=== PATIENT | male | born 1950 | race Caucasian/White ===

== ENCOUNTER → 2016-11-26 | Day surgery (SDC) | payer BC ==
[~2016-11-26] MED LIST: ALLE12TA PO; ASPI81 PO; ENDO5TAB6 PO; FENT25DI TD; FISH1000 PO; HYDR12.56 PO; KETOROLAC TROMETHAMINE 30 MG/ML (IVP) VIAL IV PUSH ONE; LACTATED RINGER'S 1000 ML INJ 1,000 ML ONE; LOSA25TA31 PO; MIDAZOLAM HCL 2 MG/2 ML VIAL ONE; NICO250C PO; OMEP20CA5 PO; ONDANSETRON HCL 4 MG/2 ML VIAL IV PUSH ONE; OS-CTAB3 PO; PROPOFOL 200 MG/20 ML AMP IV ONE; SOMA350T PO; TAB-TAB PO; TIOT18I; VITA500T10 PO; ZOLP1TAB32; [UNRECOGNIZED DRUG - OTHER] PO; ceFAZolin 2 GM PREMIX 50 ML ONE; metroNIDAZOLE 500 MG INJ 100 ML IV ONE
--- NOTE | 2016-11-26 17:09 | TN ---
cc: YAN HANNAH M.D., ISSAM M.D. RAMSHAW, DAVID G. M.D. DATE OF SURGERY 11/26/2016 PREOPERATIVE DIAGNOSES 1. Gallstones. 2. History of choledocholithiasis. POSTOPERATIVE DIAGNOSES 1. Gallstones. 2. History of choledocholithiasis. 3. Umbilical hernia. PROCEDURES PERFORMED Laparoscopic cholecystectomy and repair umbilical hernia. SURGEON Dr. Clovis Pierre [employer]UTIONS ADVISOR Marjorie Daigle, MS-3. ANESTHESIA General. INDICATIONS A very pleasant 66-year-old gentleman who was sent to me in consultation by Dr. Anderson after he was treated for choledocholithiasis with ERCP, stone extraction and stent placement. He has an appointment for ERCP with Dr. Hannah in the near future. INTRAOPERATIVE FINDINGS Full gallbladder with large approximate 2 cm stone. Gallbladder removed and sent to pathology. ESTIMATED BLOOD LOSS Minimal. DESCRIPTION OF PROCEDURE IN DETAIL The patient identified as Clovis Cazares, taken to the operating room and placed in supine position. Sequential compression devices were placed on bilateral lower extremities. Following induction of adequate general endotracheal anesthesia, the patient's abdomen was prepped and draped in usual sterile fashion with Betadine. A time-out procedure was performed. Following completion of the time-out procedure to everyone's satisfaction within the room, 0.5% Marcaine with epinephrine was placed at each incision site. A supraumbilical about a 2.5 cm transverse incision was carried out with a scalpel and dissection continued posteriorly. An incarcerated preperitoneal fatty tissue was identified, from surrounding tissues and the herniated tissue was from the overlying umbilicus using Metzenbaum scissors. The umbilical hernia defect was less than 1 centimeter in size. It was extended superiorly using scissor and entry in the peritoneal cavity facilitated with surgeon's finger. The applied medical balloon Cho trocar was placed in the peritoneal cavity, its balloon inflated to insufflation to a level of 15 mmHg ensued. The patient was placed in a reverse Trendelenburg position turned to the left. Two upper abdominal 5 mm trocars were placed in peritoneal cavity under direct laparoscopic view after incision of the skin with a scalpel. Gallbladder was then removed from the gallbladder fossa in a dome down technique using the harmonic scalpel. Cystic arterial branch divided with a harmonic scalpel. The cystic duct was isolated from surrounding tissues, ligated proximally and distally with 0-PDS Endoloops and it was divided between the Endoloops with a harmonic scalpel. The gallbladder was then removed from the peritoneal cavity from the umbilical fascial defect which had to be extended to allow for removal of the gallbladder with a large stone. Gallbladder was passed off the field for pathologic evaluation. The right upper quadrant was examined. There was no evidence of bloody or bilious drainage. The cystic duct ligature remained intact. The cystic arterial stump was hemostatic. A brief survey demonstrated no additional significant abnormalities discovered. The remaining local anesthetic was placed in the subhepatic position. Trocars were removed under direct visualization. There was no evidence of bleeding from trocar sites. The abdomen was desufflated through the umbilical port and was then removed. The umbilical fascial defect was then closed with multiple interrupted 0 Vicryl suturs, [id number] and simple. The umbilicus was reformed with interrupted 2-0 Vicryl suture. Skin incisions were approximated with 4-0 Monocryl subcuticular sutures. Dressings were applied with Mastisol, one-half inch brown Steri-Strips. Gauze and Tegaderm were placed within the umbilicus. The patient tolerated the procedure without apparent complication. Sponge, needle and instrument counts were correct at the end of the case. MD ILYA Peterson/SIMEON /3:36 PM /4:50 PM
== END | disposition home or self-care (01) ==
LOC: ESDC 12:09
PROVIDERS: ATTEND Surgery Trauma Surgery
DX: K80.65 Calculus of gallbladder and bile duct with chronic cholecystitis with obstruction (principal); K42.9 Umbilical hernia without obstruction or gangrene
CPT/HCPCS: 00750; 00790; 47562; 49585; 88304; J0690; J1885; J2250; J2405; J3010; J7120

== ENCOUNTER → 2017-10-15 | Outpatient (CLI) | payer MEDICARE, BC ==
[~2017-10-15] MED LIST changes: -KETOROLAC TROMETHAMINE 30 MG/ML (IVP) VIAL IV PUSH ONE; -LACTATED RINGER'S 1000 ML INJ 1,000 ML ONE; -MIDAZOLAM HCL 2 MG/2 ML VIAL ONE; -ONDANSETRON HCL 4 MG/2 ML VIAL IV PUSH ONE; -PROPOFOL 200 MG/20 ML AMP IV ONE; -ceFAZolin 2 GM PREMIX 50 ML ONE; -metroNIDAZOLE 500 MG INJ 100 ML IV ONE
[2017-10-15 10:51] LABS: CHOLESTEROL/ HDL RATIO 2.39 RATIO; HDL CHOLESTEROL 48.1 MG/DL (40.0-60.0)
[2017-10-15 10:56] LABS: BICARBONATE 30.5 MEQ/L (21.0-32.0); CALCIUM 9.2 MG/DL (8.5-10.1); CREATININE 1.23 MG/DL (0.60-1.30)
== END ==
LOC: CLAB 08:45
PROVIDERS: ATTEND Internal Medicine Interventional Cardiology
DX: E78.00 Pure hypercholesterolemia, unspecified (principal); I65.23 Occlusion and stenosis of bilateral carotid arteries; G45.9 Transient cerebral ischemic attack, unspecified
CPT/HCPCS: 36415; 80048; 80061; 84450; 84460